=== PATIENT | male | born 1985 ===

== ENCOUNTER 2017-05-05 18:50 | Emergency (ER) | payer OTHER ==
[2017-05-05 18:50] VITALS: BMI 21.1
[2017-05-05 19:22] VITALS: BP 117/81; PULSE 98; RESP 17; TEMP 98.5; O2SAT 99
--- NOTE | 2017-05-05 20:07 | C.PDOC ---
History Of Present Illness 31 year old male presents to the ED for evaluation of intermittent sore throat which began 1 month ago. Patient also reports he has been experiencing painful swallowing. He admits to heavy smoking for the past 9 years. He denies fever, chills, cough, shortness of breath. Time Seen by Provider: 05/05/17 19:29 Chief Complaint (Nursing): ENT Problem History Per: Patient History/Exam Limitations: None Onset/Duration Of Symptoms: Intermittent Episodes (1 month ) Current Symptoms Are (Timing): Still Present Past Medical History Reviewed: Historical Data, Nursing Documentation, Vital Signs Vital Signs: Last Vital Signs Temp 98.5 F 05/05/17 19:19 Pulse 98 H 05/05/17 19:19 Resp 17 05/05/17 19:19 BP 117/81 05/05/17 19:19 Pulse Ox 99 05/06/17 01:45 - Medical History PMH: No Chronic Diseases Surgical History: No Surg Hx - [facility] Procedures CLOSURE SKIN & SUBCUTANEOUS NEC (12/23/14) Family History: States: Unknown Family Hx - Social History Hx Tobacco Use: Yes (9 years ) Hx Alcohol Use: No Hx Substance Use: No - Immunization History Hx Tetanus Toxoid Vaccination: No Hx Influenza Vaccination: No Hx Pneumococcal Vaccination: No Review Of Systems Constitutional: Negative for: Fever, Chills ENT: Positive for: Throat Pain (with painful swallowing ) Respiratory: Negative for: Cough, Shortness of Breath Physical Exam - Physical Exam Appears: Non-toxic, No Acute Distress Skin: Normal Color, Warm, Dry Head: Atraumatic, Normacephalic Eye(s): bilateral: Normal Inspection, PERRL Ear(s): Bilateral: Normal Nose: Normal, No Discharge Oral Mucosa: Moist Throat: Normal, No Erythema, No Exudate, Other (uvula at midline ) Neck: Supple, No Other (swelling or palpable mass ) Lymphatic: No Adenopathy Chest: Symmetrical, No Tenderness Cardiovascular: Rhythm Regular Respiratory: Normal Breath Sounds, No Rhonchi, No Wheezing Neurological/Psych: Oriented x3 Gait: Steady ED Course And Treatment O2 Sat by Pulse Oximetry: 99 (on RA) Pulse Ox Interpretation: Normal Progress Note: On reassessment, patient is resting comfortably and showing no signs of respitatory distress and is stable for discharge. Patient is advised to follow up with his PMD and ENT within 1-2 days for further evaluation and/or return to the ED if symptoms persist or worsen. Disposition - Disposition Referrals: Sachin Cosme MD [Staff Provider] - [facility] at [facility] [Outside] Disposition: HOME/ ROUTINE Disposition Time: 20:04 Condition: STABLE Additional Instructions: Please follow up with PMD and ENT Tylenol or advil for pain/ May use lozenges Gargle with warm salt water Advise Smoking cessation Return to ER if worse Forms: General Discharge Instructions, [facility] (Telugu) - Clinical Impression Clinical Impression: Sore throat, chronic, Painful swallowing - PA / PAYROLL PROCESSOR / Resident Statement MD/DO has reviewed & agrees with the documentation as recorded. - Scribe Statement The provider has reviewed the documentation as recorded by the Scribe (Amanda Franz) All medical record entries made by the Scribe were at my direction and personally dictated by me. I have reviewed the chart and agree that the record accurately reflects my personal performance of the history, physical exam, medical decision making, and the department course for this patient. I have also personally directed, reviewed, and agree with the discharge instructions and disposition.
== END 2017-05-05 20:12 | disposition home or self-care (01) ==
LOC: C.ER 18:50 → SUPCPDRO 18:50 → C.ER 20:12
DX: R07.0 Pain in throat (principal); R13.10 Dysphagia, unspecified

== ENCOUNTER 2017-07-22 16:50 | Emergency (ER) | payer OTHER ==
[2017-07-22 17:02] VITALS: BMI 22.7
[2017-07-22 17:06] VITALS: BP 128/76; PULSE 91; TEMP 98.7; O2SAT 98
--- NOTE | 2017-07-22 17:41 | C.PDOC ---
History Of Present Illness Pt c/o rash on right side of upper back and anterior shoulder. Time Seen by Provider: 07/22/17 17:11 Chief Complaint (Nursing): Abnormal Skin Integrity History Per: Patient Onset/Duration Of Symptoms: Days (6) Current Symptoms Are (Timing): Still Present Location Of Injury: Right: Back Quality Of Symptoms: Painful, Itching Severity: Moderate Additional History Per: Prior Records Past Medical History Reviewed: Historical Data, Nursing Documentation, Vital Signs Vital Signs: Last Vital Signs Temp 98.7 F 07/22/17 17:05 Pulse 91 H 07/22/17 17:05 Resp 20 07/22/17 17:05 BP 128/76 07/22/17 17:05 Pulse Ox 98 07/22/17 17:05 - Medical History PMH: No Chronic Diseases - [facility] Procedures CLOSURE SKIN & SUBCUTANEOUS NEC (12/23/14) Family History: States: Unknown Family Hx - Social History Hx Tobacco Use: Yes (9 years ) Hx Alcohol Use: No Hx Substance Use: No - Immunization History Hx Tetanus Toxoid Vaccination: No Hx Influenza Vaccination: No Hx Pneumococcal Vaccination: No Review Of Systems Except As Marked, All Systems Reviewed And Found Negative. Constitutional: Negative for: Fever, Weakness ENT: Negative for: Throat Pain, Throat Swelling Respiratory: Negative for: Cough, Shortness of Breath Gastrointestinal: Negative for: Vomiting, Abdominal Pain Musculoskeletal: Negative for: Neck Pain Skin: Positive for: Rash Neurological: Negative for: Weakness, Numbness Physical Exam - Physical Exam Appears: Non-toxic, No Acute Distress Skin: Normal Color, Warm, Dry, Rash (Vesicular patches on an erythematous base.) Head: Atraumatic, Normacephalic Eye(s): bilateral: Normal Inspection, PERRL, EOMI Oral Mucosa: Moist, No Drooling, No Trismus Lips: Normal Appearing Neck: Normal ROM, Supple Lymphatic: No Adenopathy Cardiovascular: Rhythm Regular Respiratory: Normal Breath Sounds, No Accessory Muscle Use Gastrointestinal/Abdominal: Soft, No Tenderness Back: No CVA Tenderness Extremity: Normal ROM ED Course And Treatment O2 Sat by Pulse Oximetry: 98 Pulse Ox Interpretation: Normal Medical Decision Making Medical Decision Making: Will not start on antivirals as rash appeared more than 72 hours ago. Will treat with steroids for symptomatic relief. Disposition Counseled Patient/Family Regarding: Studies Performed, Diagnosis, Need For Followup, Rx Given - Disposition Referrals: Shaik Morris MD [Staff Provider] - Disposition: HOME/ ROUTINE Disposition Time: 17:45 Condition: STABLE Additional Instructions: Follow up with your doctor for further evaluation and treatment. Return to the ER if you develop fever, worsening of symptoms or if you have any other concerns. Prescriptions: Mupirocin 2% Ointment [Bactroban Ointment] 1 applic TOP BID #1 tube predniSONE [predniSONE Tab] 2 tab PO DAILY #10 tab Instructions: Shingles (DC) Forms: [facility] (Mohawk) - Clinical Impression Clinical Impression: Herpes zoster
[2017-07-22 18:03] VITALS: RESP 18
== END 2017-07-22 18:03 | disposition home or self-care (01) ==
LOC: C.ER 16:50
DX: B02.9 Zoster without complications (principal)

== ENCOUNTER 2017-12-14 12:00 | Emergency (ER) | payer OTHER ==
[2017-12-14 12:00] VITALS: BMI 22.7
[2017-12-14 12:24] VITALS: RESP 18; TEMP 98.7; O2SAT 99
--- NOTE | 2017-12-14 13:29 | RAD ---
Date of service: 12/14/2017 HISTORY: Cough COMPARISON: No prior. TECHNIQUE: Chest PA and lateral FINDINGS: LUNGS: No active pulmonary disease. PLEURA: No significant pleural effusion identified. No pneumothorax apparent. CARDIOVASCULAR: Normal. OSSEOUS STRUCTURES: No significant abnormalities. VISUALIZED UPPER ABDOMEN: Normal. OTHER FINDINGS: None. IMPRESSION: No active disease.
--- NOTE | 2017-12-14 13:48 | C.PDOC ---
History Of Present Illness 32-year-old male, presents to the emergency department with complaints of reproducible left-sided chest wall pain gradually developed for past 2 days. Patient states he was lifting heavy boxes prior to onset of current sx. Pt describes pain as localized, worse with movement. Pt denies fever, chills, headache, dizziness, neck pain, SOB, wheezing, palpitation or diaphoresis, abd. pain, N/V/D, back pain, denies any other active complaints. Pt denies cocaine abuse. Ambulate to Ed for evaluation, appear sin pain. Time Seen by Provider: 12/14/17 12:33 Chief Complaint (Nursing): Chest Pain History Per: Patient Onset/Duration Of Symptoms: Gradual Past Medical History Reviewed: Historical Data, Nursing Documentation, Vital Signs Vital Signs: Last Vital Signs Temp 98.7 F 12/14/17 12:20 Pulse 64 12/14/17 12:42 Resp 18 12/14/17 12:42 BP 106/68 12/14/17 12:42 Pulse Ox 99 12/14/17 13:53 - Medical History PMH: Denies: Arthritis, CHF, COPD, HTN, Hypercholesterolemia, Hypothyroidism, Pneumonia, Rheumatoid Arthritis Surgical History: No Surg Hx - [facility] Procedures CLOSURE SKIN & SUBCUTANEOUS NEC (12/23/14) Family History: States: Unknown Family Hx - Social History Hx Tobacco Use: Yes (9 years ) Hx Alcohol Use: No Hx Substance Use: No - Immunization History Hx Tetanus Toxoid Vaccination: No Hx Influenza Vaccination: No Hx Pneumococcal Vaccination: No Review Of Systems Except As Marked, All Systems Reviewed And Found Negative. Constitutional: Negative for: Fever, Chills ENT: Negative for: Throat Pain Cardiovascular: Positive for: Chest Pain (reproducible). Negative for: Palpitations, Orthopnea, Edema, Light Headedness Respiratory: Negative for: Shortness of Breath, Wheezing Musculoskeletal: Negative for: Neck Pain, Back Pain Skin: Negative for: Rash, Bruising Neurological: Negative for: Weakness, Numbness, Altered Mental Status, Headache , Dizziness Physical Exam - Physical Exam Appears: Well, Non-toxic, No Acute Distress Skin: Normal Color, Warm, Dry, No Rash, No Ecchymosis Head: Normacephalic Eye(s): bilateral: PERRL Nose: No Flaring, No Discharge Oral Mucosa: Moist Throat: No Erythema, No Drooling Neck: Normal ROM, Trachea Midline, Supple Chest: Symmetrical, No Deformity, Tenderness (left anterior chest wall overlying 4-5 intercostal spaces. No palpable defomrity, no skin changes.), No Ecchymosis, No Subcutaneous Emphysema Cardiovascular: Rhythm Regular, No Murmur, No JVD, Other ((-) carotid bruits B/L ) Respiratory: No Decreased Breath Sounds, No Accessory Muscle Use, No Stridor Gastrointestinal/Abdominal: Soft, No Tenderness, No Distention, No Guarding, No Rebound Back: No CVA Tenderness, No Vertebral Tenderness, No Paraspinal Tenderness Extremity: Normal ROM, No Pedal Edema, No Deformity, No Swelling Neurological/Psych: Oriented x3, Normal Speech ED Course And Treatment ECG: Interpreted By Me, Viewed By Me ECG Rhythm: Sinus Rhythm Interpretation Of ECG: SR@65/min, RAD, no acute T wave or ST-T changes. O2 Sat by Pulse Oximetry: 99 Pulse Ox Interpretation: Normal - Radiology CXR: Interpreted by Me, Read By Radiologist CXR Interpretation: Yes: No Acute Disease. No: Pnemothorax Progress Note: On re-eval, pt is afebrile, hemodynamicaly stable. Non-toxic. PulsEOx 99% RA. neck: Supple, (-) carotid bruits B/L, (-) JVD. ENT: no acute findings. Lungs: CTA B/L, BS equal B/L. CVS: (+)S1S2, reg. Abd: benign. CXR , EKG- normal study. Pt has clinical findings c/w left sided chest wall pain, reproducible. Pt advised. ref. to f/u with PMD in 2-3 dyas for re-evaluation. return to ED if any worsening or new changes. Disposition Counseled Patient/Family Regarding: Studies Performed, Diagnosis, Need For Followup, Rx Given - Disposition Referrals: [facility] at [facility] [Outside] Disposition: HOME/ ROUTINE Disposition Time: 13:53 Condition: STABLE Additional Instructions: Light duty, avoid physical activity for 1 week take pain medication as need as prescribed Follow up with PMD in 2-3 days for re-evaluation. return to Ed if any worsening or new changes. Prescriptions: Methocarbamol [Robaxin] 500 mg PO TID #14 tab traMADol [Ultram] 50 mg PO TID #7 tab Instructions: Muscle Strain (DC), Chest Pain (DC) Forms: [facility] (Pashto), Work Excuse - Clinical Impression Clinical Impression: Chest wall muscle strain - Scribe Statement The provider has reviewed the documentation as recorded by the Scribe (Harsh ohlder) All medical record entries made by the Scribe were at my direction and personally dictated by me. I have reviewed the chart and agree that the record accurately reflects my personal performance of the history, physical exam, medical decision making, and the department course for this patient. I have also personally directed, reviewed, and agree with the discharge instructions and disposition.
[2017-12-14 14:09] VITALS: BP 96/61; PULSE 70
--- NOTE | 2017-12-15 17:49 | CARD ---
APPROVED REPORT Date of service: 12/14/2017 EKG Measurement Heart [id number] <Conclusion> Normal sinus rhythm Rightward axis Borderline ECG
== END 2017-12-14 14:41 | disposition home or self-care (01) ==
LOC: C.ER 12:00
DX: S29.011A Strain of muscle and tendon of front wall of thorax, initial encounter (principal); X50.0XXA Overexertion from strenuous movement or load, initial encounter

== ENCOUNTER 2018-07-16 17:53 | Observation (INO) | payer OTHER ==
[2018-07-16 18:05] VITALS: BMI 21.6
[2018-07-16] MEDS ORDERED: Sodium Chloride 0.9% 500 ML IV ONE (19:11)
--- NOTE | 2018-07-16 19:11 | C.PDOC ---
History Of Present Illness Patient is a 32 year old male who presents to the ED c/o a painful left buttock mass that has developed gradually over the past week. Patient admits that he has had similar intermittent sx in the past but has never had it drained. Patient denies any fever, wound drainage, abdominal pain, or change in bowel movements. Time Seen by Provider: 07/16/18 18:17 Chief Complaint (Nursing): Abnormal Skin Integrity History Per: Patient History/Exam Limitations: no limitations Onset/Duration Of Symptoms: Days (one week) Current Symptoms Are (Timing): Still Present Location Of Injury: Left: Buttock Quality Of Symptoms: Painful Recent travel outside of the [place]: No Additional History Per: Patient Past Medical History Reviewed: Historical Data, Nursing Documentation, Vital Signs Vital Signs: Last Vital Signs Temp 98.7 F 07/16/18 18:05 Pulse 79 07/16/18 18:05 Resp 18 07/16/18 18:05 BP 107/72 07/16/18 18:05 Pulse Ox 98 07/16/18 18:05 - Medical History PMH: No Chronic Diseases Denies: Arthritis, CHF, COPD, HTN, Hypercholesterolemia, Hypothyroidism, Pneumonia, Rheumatoid Arthritis Surgical History: No Surg Hx - [facility] Procedures CLOSURE SKIN & SUBCUTANEOUS NEC (12/23/14) Family History: States: Unknown Family Hx - Social History Hx Tobacco Use: Yes (9 years ) Hx Alcohol Use: Yes Hx Substance Use: No - Immunization History Hx Tetanus Toxoid Vaccination: No Hx Influenza Vaccination: No Hx Pneumococcal Vaccination: No Review Of Systems Constitutional: Positive for: Fever Gastrointestinal: Negative for: Abdominal Pain, Diarrhea, Constipation, Hematochezia Skin: Positive for: Other (mass on left buttock with no drainage ) Physical Exam - Physical Exam Appears: Well, No Acute Distress Skin: Normal Color, Warm, Dry, Other (Left gluteal tender mass 5#4 cm, (+) er ythema, (+) flactulance) Eye(s): bilateral: PERRL Nose: No Flaring Oral Mucosa: Moist Throat: No Erythema Neck: Supple Cardiovascular: Rhythm Regular, No Murmur, No JVD Respiratory: No Decreased Breath Sounds, No Accessory Muscle Use, No Stridor, No Wheezing Gastrointestinal/Abdominal: Soft, No Tenderness, No Distention, No Guarding Rectal: Other (no perirectal tenderness) Back: No CVA Tenderness Extremity: Normal ROM Neurological/Psych: Oriented x3, Normal Speech ED Course And Treatment - Laboratory Results Result Diagrams: 07/16/18 19:30 07/16/18 19:30 Lab Interpretation: No Acute Changes O2 Sat by Pulse Oximetry: 98 (on RA) Pulse Ox Interpretation: Normal Progress Note: Plan: Labs. Blood Culture. Urinalysis. Ultram 50mg PO. Toradol 30mg IV. IV Fluids. Zosyn 3.375gm in 50ml IVPB. Surgical consult was called with . global consumer sector vice president evaluated pt in ED and admission for I&D recommend. Pt agrees with plan. Disposition - Disposition Disposition: HOSPITALIZED Disposition Time: 19:12 Condition: STABLE - Clinical Impression Clinical Impression: Abscess, gluteal, Cellulitis - PA / PATTERN HAND / Resident Statement MD/DO has examined the patient and agrees with the treatment plan. - Scribe Statement The provider has reviewed the documentation as recorded by the Tomer Galloway All medical record entries made by the Tomer were at my direction and personally dictated by me. I have reviewed the chart and agree that the record accurately reflects my personal performance of the history, physical exam, medical decision making, and the department course for this patient. I have also personally directed, reviewed, and agree with the discharge instructions and disposition.
[2018-07-16] MEDS ORDERED: Piperacillin/Tazobact 3.375 gm 100 ML IV STA (19:12)
--- NOTE | 2018-07-16 19:20 | CP.PCM.HP ---
History of Present Illness - History of Present Illness History of Present Illness: General Surgery Dr. Lin 32 y/o M w/ no PMHx presents to the ED at the direction of his PMD c/o gluteal abscess. Pt reports first noticing the lesion a few months ago, however it seemed to heal on its own. Pt states the lesion has come and go over the last few months. Pt denies having similar sores in the past. Pt was seen by PMD today for this gluteal wound and was instructed to come to the ED for potential drainage. Pt denies F/C, N/V, D/C, painful BM. PMHx: denies Meds: reviewed in chart NKDA PSHx: denies SHx: (+)tobacco; denies EtOH, drug use FHx: noncontributory Present on Admission - Present on Admission Any Indicators Present on Admission: No Review of Systems - Review of Systems All systems: reviewed and no additional remarkable complaints except (see HPI) Past Patient History - Infectious Disease Hx of Infectious Diseases: None - Past Social History Smoking Status: Heavy Smoker > 10 Cigarettes Daily - CARDIAC Hx Congestive Heart Failure: No Hx Hypercholesterolemia: No Hx Hypertension: No - PULMONARY Hx Chronic Obstructive Pulmonary Disease (COPD): No Hx Pneumonia: No - NEUROLOGICAL HX Cerebrovascular Accident: No - RENAL Hx Renal Failure: No - ENDOCRINE/METABOLIC Hx Hypothyroidism: No - HEMATOLOGICAL/ONCOLOGICAL Hx Cancer: No - MUSCULOSKELETAL/RHEUMATOLOGICAL Hx Arthritis: No Hx Rheumatoid Arthritis: No - GASTROINTESTINAL Hx Gastroesophageal Reflux: No - PSYCHIATRIC Hx Substance Use: No - SURGICAL HISTORY Hx Surgeries: No - ANESTHESIA Hx Anesthesia: No Meds Allergies/Adverse Reactions: Allergies Allergy/AdvReac Type Severity Reaction Status Date / Time No Known Allergies Allergy Verified 07/16/18 18:03 Physical Exam - Constitutional Appears: Non-toxic, No Acute Distress - Head Exam Head Exam: NORMAL INSPECTION - Eye Exam Eye Exam: Normal appearance - ENT Exam ENT Exam: Mucous Membranes Moist - Respiratory Exam Respiratory Exam: NORMAL BREATHING PATTERN. absent: Accessory Muscle Use, Respiratory Distress - Cardiovascular Exam Cardiovascular Exam: REGULAR RHYTHM. absent: Bradycardia, Tachycardia - GI/Abdominal Exam GI & Abdominal Exam: Soft. absent: Tenderness - Rectal Exam Additional comments: ~2.5cm diameter L gluteal abscess. erythematous w/ palpable fluctuance little to no surrounding erythema or induration. no drainage noted - Extremities Exam Extremities exam: Positive for: normal inspection - Back Exam Back exam: NORMAL INSPECTION - Neurological Exam Neurological exam: Alert, Oriented x3 - Psychiatric Exam Psychiatric exam: Normal Affect, Normal Mood - Skin Skin Exam: Dry, Intact, Warm Results - Vital Signs Recent Vital Signs: Last Vital Signs Temp 98.7 F 07/16/18 18:05 Pulse 79 07/16/18 18:05 Resp 18 07/16/18 18:05 BP 107/72 07/16/18 18:05 Pulse Ox 98 07/16/18 19:14 - Labs Labs: pending Assessment & Plan - Assessment and Plan (Free Text) Assessment: 32 y/o M w/ L gluteal abscess Plan: - admit observation status - IV Abx - pain management - warm compresses - NPO @[place] - OR for I&D @11am Pt discussed w/ Dr. Riley Lai DO PGY3
[2018-07-16] MEDS ORDERED: Piperacillin/Tazobact 3.375 gm 100 ML IVPB ONE (19:23)
[2018-07-16 19:34] LABS: BASO # 0.1 K/uL (0.0-0.2); BASO % 0.7 % (0.0-2.0); EOS # 0.3 K/uL (0.0-0.7); EOS % 2.2 % (0.0-4.0); HEMOGLOBIN 14.4 g/dL (12.0-18.0); LYMPH # 1.5 K/uL (1.0-4.3); LYMPH % 12.7 % (20.0-40.0); MEAN CELL VOLUME 92.8 fL (80.0-94.0); MEAN CORPUSCULAR HEMOGLOBIN 30.6 pg (27.0-31.0); MEAN CORPUSCULAR HGB CONC 32.9 g/dL (33.0-37.0); MEAN PLATELET VOLUME 8.8 fL (7.2-11.7); MONO # 1.2 K/uL (0.0-0.8); MONO % 10.5 % (0.0-10.0); NEUT # 8.6 K/uL (1.8-7.0); NEUT % 73.9 % (50.0-75.0); RBC 4.7 Mil/uL (4.40-5.90); RED CELL DISTRIBUTION WIDTH 13.2 % (11.5-14.5); WHITE BLOOD COUNT 11.6 K/uL (4.8-10.8)
[2018-07-16 19:46] LABS: ALB/GLOB RATIO 1.5 (1.0-2.1); ALBUMIN 4.3 g/dL (3.5-5.0); ALT/SGPT 21 U/L (21-72); AST/SGOT 22 U/L (17-59); BLOOD UREA NITROGEN 11 mg/dL (9-20); CALCIUM 9.1 mg/dl (8.6-10.4); GFR NON-AFRICAN AMERICAN > 60
[2018-07-16] MEDS: Lactated Ringer's 1,000 ML IV SCH (21:25)
[2018-07-17] MEDS: Piperacill/Tazo 3.375gm in Dex 3.375 GM/50 ML BAG IVPB SCH ×4 (00:41→20:41)
[2018-07-17 06:32] LABS: HEMOGLOBIN 13.7 g/dL (12.0-18.0); MEAN CELL VOLUME 93.7 fL (80.0-94.0); MEAN CORPUSCULAR HEMOGLOBIN 30.5 pg (27.0-31.0); MEAN CORPUSCULAR HGB CONC 32.6 g/dL (33.0-37.0); MEAN PLATELET VOLUME 9.2 fL (7.2-11.7); RBC 4.5 Mil/uL (4.40-5.90); RED CELL DISTRIBUTION WIDTH 13.2 % (11.5-14.5); WHITE BLOOD COUNT 11.6 K/uL (4.8-10.8)
[2018-07-17 06:48] LABS: BLOOD UREA NITROGEN 13 mg/dL (9-20); CALCIUM 8.6 mg/dl (8.6-10.4); GFR NON-AFRICAN AMERICAN > 60
[2018-07-17 07:08] LABS: INR 1.1; PROTHROMBIN TIME 12.3 SECONDS (9.7-12.2)
[2018-07-17] MEDS: Lactated Ringer's 1,000 ML IV SCH ×2 (07:15→12:15)
[2018-07-17 07:16] LABS: SQUAMOUS EPITHIAL < 1 /hpf (0-5); URINE BACTERIA RARE (<OCC); URINE BILIRUBIN NEGATIVE (NEGATIVE); URINE BLOOD NEGATIVE (NEGATIVE); URINE CLARITY Hazy (Clear); URINE COLOR Yellow (YELLOW); URINE GLUCOSE (UA) NORMAL (Normal); URINE LEUKOCYTE ESTERASE NEG Leu/uL (Negative); URINE PROTEIN NEGATIVE (NEGATIVE); URINE UROBILINOGEN NORMAL mg/dL (0.2-1.0)
[2018-07-17] MEDS ORDERED: Bupivacaine-Epi 0.5%-1:200,000 PF Inj ONE (10:12)
[2018-07-17] MEDS ORDERED: Propofol 10 mg/ml Inj (20 ML) ONE (10:48)
[2018-07-17] MEDS ORDERED: Lactated Ringer's 1,000 ML IV ONE (11:14)
--- NOTE | 2018-07-17 11:19 | PCM.SURG1 ---
Surgeon's Initial Post Op Note - Surgeon's Notes Surgeon: Dr. Lin Salvager Helper: Dr. Gonzalez PGY-3 Type of Anesthesia: General LMA Pre-Operative Diagnosis: Left gluteal abscess Operative Findings: see operative report Post-Operative Diagnosis: Same Operation Performed: Incision & Drainage of Left gluteal abscess Specimen/Specimens Removed: none Estimated Blood Loss: EBL {In ML}: 5 Blood Products Given: N/A Drains Used: No Drains Post-Op Condition: Good Date of Surgery/Procedure: 07/17/18 Time of Surgery/Procedure: :
[2018-07-17 12:21] VITALS: RESP 20
--- NOTE | 2018-07-17 17:55 | OP ---
PROCEDURE DATE: 07/17/2018 TIME OF PROCEDURE: 11 o'clock. PREOPERATIVE DIAGNOSIS: Left gluteal abscess. POSTOPERATIVE DIAGNOSIS: Left gluteal abscess. PROCEDURE: Incision and drainage of left gluteal abscess. SURGEON: Tom Lin MD MILK TREATER: Lucina Gonzalez DO TYPE OF ANESTHESIA: General LMA. ESTIMATED BLOOD LOSS: 5 mL DRAINS USED: None. DESCRIPTION OF PROCEDURE: An informed consent was obtained and the patient was brought to the operating room and placed in the right lateral recumbent position with left side up. The left gluteus was prepped and draped in sterile manner and a time out was performed. A 4-cm vertical incision was then made over the fluctuant part of the abscess and about 10 to 12 mL of purulent fluid was expressed. Cultures were obtained and the abscess cavity was irrigated with copious amounts of saline. A Adela clamp was used to break up any loculation. Hemostasis was achieved and the cavity was packed with 1-inch iodoform packing. A sterile dressing was applied. The patient tolerated the procedure well and was brought to PACU in stable condition. All counts were correct at the end of the procedure. Lucina Gonzalez DO Tom Lin MD
[2018-07-18] MEDS: Lactated Ringer's 1,000 ML IV SCH ×2 (00:21→08:08)
[2018-07-18] MEDS: Piperacill/Tazo 3.375gm in Dex 3.375 GM/50 ML BAG IVPB SCH ×2 (00:36→06:38)
[2018-07-18 08:17] VITALS: BP 104/59; PULSE 73; TEMP 98.7
[2018-07-18 08:24] LABS: HEMOGLOBIN 14.2 g/dL (12.0-18.0); MEAN CELL VOLUME 92.9 fL (80.0-94.0); MEAN CORPUSCULAR HEMOGLOBIN 31.8 pg (27.0-31.0); MEAN CORPUSCULAR HGB CONC 34.2 g/dL (33.0-37.0); MEAN PLATELET VOLUME 9.5 fL (7.2-11.7); RBC 4.49 Mil/uL (4.40-5.90); RED CELL DISTRIBUTION WIDTH 13.2 % (11.5-14.5)
--- NOTE | 2018-07-18 08:37 | CP.PCM.DIS ---
Provider - Provider Date of Admission: 07/16/18 19:15 Attending physician: Tom Lin MD Consults: 07/16/18 19:08 Physician Consult Stat Comment: Consulting Provider: Tom Lin Consulting Physician: Tom Lin Reason for Consult: left gluteal abscess with cellulitis Time Spent in preparation of Discharge (in minutes): 40 Hospital Course - Lab Results Lab Results: Micro Results 07/16/18 23:10 Blood Blood Culture - Preliminary NO GROWTH AFTER 24 HOURS 07/17/18 15:34 Buttock Gram Stain - Final 07/16/18 19:15 Blood Blood Culture - Preliminary NO GROWTH AFTER 24 HOURS Most Recent Lab Values WBC 8.0 K/uL (4.8-10.8) 07/18/18 08:05 RBC 4.49 Mil/uL (4.40-5.90) 07/18/18 08:05 Hgb 14.2 g/dL (12.0-18.0) 07/18/18 08:05 Hct 41.7 % (35.0-51.0) 07/18/18 08:05 MCV 92.9 fL (80.0-94.0) 07/18/18 08:05 MCH 31.8 pg (27.0-31.0) H 07/18/18 08:05 MCHC 34.2 g/dL (33.0-37.0) 07/18/18 08:05 RDW 13.2 % (11.5-14.5) 07/18/18 08:05 Plt Count 244 K/uL (130-400) 07/18/18 08:05 MPV 9.5 fL (7.2-11.7) 07/18/18 08:05 Neut % (Auto) 73.9 % (50.0-75.0) 07/16/18 19:30 Lymph % (Auto) 12.7 % (20.0-40.0) L 07/16/18 19:30 [place] % (Auto) 10.5 % (0.0-10.0) H 07/16/18 19:30 Eos % (Auto) 2.2 % (0.0-4.0) 07/16/18 19:30 Baso % (Auto) 0.7 % (0.0-2.0) 07/16/18 19:30 Neut # (Auto) 8.6 K/uL (1.8-7.0) H 07/16/18 19:30 Lymph # (Auto) 1.5 K/uL (1.0-4.3) 07/16/18 19:30 [place] # (Auto) 1.2 K/uL (0.0-0.8) H 07/16/18 19:30 Eos # (Auto) 0.3 K/uL (0.0-0.7) 07/16/18 19:30 Baso # (Auto) 0.1 K/uL (0.0-0.2) 07/16/18 19:30 PT 12.3 SECONDS (9.7-12.2) H 07/17/18 06:20 INR 1.1 07/17/18 06:20 APTT 33 SECONDS (21-34) 07/17/18 06:20 Sodium 138 mmol/L (132-148) 07/17/18 06:20 Potassium 4.0 mmol/L (3.6-5.2) 07/17/18 06:20 Chloride 101 mmol/L (98-107) 07/17/18 06:20 Carbon Dioxide 33 mmol/L (22-30) H 07/17/18 06:20 Anion Gap 7 (10-20) L 07/17/18 06:20 BUN 13 mg/dL (9-20) 07/17/18 06:20 Creatinine 0.9 mg/dL (0.8-1.5) 07/17/18 06:20 Est GFR ( Amer) > 60 07/17/18 06:20 Est GFR (Non-Af Amer) > 60 07/17/18 06:20 Random Glucose 105 mg/dL (75-110) D 07/17/18 06:20 Calcium 8.6 mg/dl (8.6-10.4) 07/17/18 06:20 Phosphorus 4.1 mg/dL (2.5-4.5) 07/17/18 06:20 Magnesium 2.0 mg/dL (1.6-2.3) 07/17/18 06:20 Total Bilirubin 0.3 mg/dL (0.2-1.3) 07/16/18 19:30 AST 22 U/L (17-59) 07/16/18 19:30 ALT 21 U/L (21-72) 07/16/18 19:30 Alkaline Phosphatase 53 U/L (38-126) 07/16/18 19:30 Total Protein 7.2 g/dL (6.3-8.3) 07/16/18 19:30 Albumin 4.3 g/dL (3.5-5.0) 07/16/18 19:30 Globulin 3.0 gm/dL (2.2-3.9) 07/16/18 19:30 Albumin/Globulin Ratio 1.5 (1.0-2.1) 07/16/18 19:30 Urine Color Yellow (YELLOW) 07/17/18 06:59 Urine Clarity Hazy (Clear) 07/17/18 06:59 Urine pH 6.0 (5.0-8.0) 07/17/18 06:59 Ur Specific [place] 1.025 (1.003-1.030) 07/17/18 06:59 Urine Protein Negative mg/dL (NEGATIVE) 07/17/18 06:59 Urine Glucose (UA) Normal mg/dL (Normal) 07/17/18 06:59 Urine Ketones Negative mg/dL (NEGATIVE) 07/17/18 06:59 Urine Blood Negative (NEGATIVE) 07/17/18 06:59 Urine Nitrate Negative (NEGATIVE) 07/17/18 06:59 Urine Bilirubin Negative (NEGATIVE) 07/17/18 06:59 Urine Urobilinogen Normal mg/dL (0.2-1.0) 07/17/18 06:59 Ur Leukocyte Esterase Neg [place]/uL (Negative) 07/17/18 06:59 Urine WBC (Auto) 1 /hpf (0-5) 07/17/18 06:59 Urine RBC (Auto) 4 /hpf (0-3) H 07/17/18 06:59 Ur Squamous Epith Cells < 1 /hpf (0-5) 07/17/18 06:59 Urine Bacteria Rare (<OCC) 07/17/18 06:59 - Hospital Course Hospital Course: 32M presents with left gluteal abscess which was drained in the OR. Patient doing well post op. Will be discharged on PO antibiotics Discharge Exam - Head Exam Head Exam: NORMAL INSPECTION - Respiratory Exam Respiratory Exam: Clear to PA & Lateral, NORMAL BREATHING PATTERN - Cardiovascular Exam Cardiovascular Exam: REGULAR RHYTHM, +S1, +S2 - GI/Abdominal Exam GI & Abdominal Exam: Soft. absent: Distended, Firm, Guarding, Rebound, Rigid, Tenderness - Rectal Exam Additional comments: left gluteal dressing CDI - Neurological Exam Neurological exam: Alert, Oriented x3 - Psychiatric Exam Psychiatric exam: Normal Affect, Normal Mood - Skin Skin Exam: Dry, Intact, Normal Color, Warm Discharge Plan - Discharge Medications Prescriptions: Amoxicillin/Clavulanate [Augmentin 875 MG-125 MG] 1 tab PO BID #14 tab - Follow Up Plan Condition: STABLE Disposition: HOME/ ROUTINE Patient education suggested?: Yes Instructions: Abscess Incision and Drainage (DC) Additional Instructions: 1) Please follow up in the office on Thursday 2) Keep packing in place 3) Please take medications as prescribed 4) May shower but do not bath Referrals: Tom Lin MD [Staff Provider] -
[2018-07-18 09:12] VITALS: O2SAT 100
[2018-07-18] MEDS ORDERED: Influenza Vaccine 60 mcg/0.5 mL SYR (4YR UP) IM ONE (09:24)
[2018-07-18] MEDS ORDERED: Pneumococcal 23-Valent Vaccine IM ONE (09:24)
== END 2018-07-18 11:35 | disposition home or self-care (01) ==
LOC: C.ER 17:53 → C.3T 19:15
PROVIDERS: ADMIT Surgery; ATTEND Surgery
DX: L02.31 Cutaneous abscess of buttock (principal); F17.200 Nicotine dependence, unspecified, uncomplicated
CPT/HCPCS: 10060; 36415; 80048; 80053; 81001; 83735; 84100; 85025; 85027; 85610; 85730; 87040; 87070; 99284; G0378; J2543; J2704; J3010; J7120